=== PATIENT | male | born 1955 | race Caucasian/White ===

== ENCOUNTER → 2018-05-07 02:58 | Outpatient (CLI) | payer OTHER, SELFPAY ==
[2018-05-07 09:30] LABS: ALT 36 U/L (12-78); AST 24 U/L (15-37); Alkaline Phosphatase 92 U/L (46-116); BUN 12 mg/dL (7-18); Bilirubin, Total 0.6 mg/dL (0.2-1.0); CREATININE 1.04 mg/dL (0.70-1.30); Chloride 103 mmol/L (98-107); Cholesterol 146 mg/dL (50-200); Glucose 98 mg/dL (70-100); HDL Cholesterol 54 mg/dL (40-60); LDL CHOLESTEROL 81 mg/dL (<100); Sodium 140 mmol/L (136-145); Triglyceride 93 mg/dL (30-150)
== END ==
PROVIDERS: PCP Family Medicine; Visit Provider Family Medicine
DX: I10 Essential (primary) hypertension (principal); Z13.220 Encounter for screening for lipoid disorders
CPT/HCPCS: 36415; 80053; 80061; 83721

== ENCOUNTER 2018-07-11 15:11 | Outpatient (CLI) | payer OTHER, SELFPAY ==
[2018-07-11 16:10] LABS: Calcium 8.3 mg/dL (8.5-10.1)
[2018-07-12 11:15] LABS: Parathyroid Hormone,Intact 79 pg/ml (19-88)
== END 2018-07-11 15:31 ==
PROVIDERS: PCP Family Medicine; Visit Provider Family Medicine
DX: E83.51 Hypocalcemia (principal)
CPT/HCPCS: 36415; 82310; 83970

== ENCOUNTER 2018-08-23 06:53 | Day surgery (SDC) | payer OTHER, SELFPAY ==
[2018-08-23 07:12] VITALS: BP 146/94; PULSE 88; RESP 16; TEMP 35.4; O2SAT 99
[2018-08-23] MEDS: Lactated Ringers 1,000 ML 30 ML IV (07:29)
[2018-08-23 09:49] VITALS: BP 125/79; PULSE 60; RESP 16; TEMP 36.4; O2SAT 95
--- NOTE | 2018-08-23 09:53 | COLE_ITS ---
Date of service: 08/23/18 Time of Service: 08:45 Colonoscopy Report Date of procedure: 08/23/18 Pre-op diagnosis general: Colorectal cancer screening Post-op diagnosis procedure note: other (Moderate sigmoid diverticula) Procedure: Colonoscopy to the cecum Surgeon: Dominguez Link Anesthesia proc note operative: MAC Estimated blood loss (mL): 0 Pathology: none sent Complications: None Disposition: same day Indications: 62 y/o male with history of HTN presents for colonoscopy screening pre-op. His last screening was in 2007, which was unremarkable. He denies a family history of colon cancer. Prep: Miralax/Dulcolax (Prep quality excellent) Findings: In examining the colon from cecum to anus, patient was found to have some mild sigmoid diverticulosis but no other abnormalities were noted. Procedure Description: The patient was seen in the day surgery waiting area. His identification was confirmed, and procedure checked. He was then brought to the procedure room. Monitoring for telemetry, blood pressure, oxygen saturation, and end tidal CO2 monitoring were applied. An appropriate time out was performed to confirm, identification, allergies, medication, procedure, was performed. Sedation was titrated for affect by the DIESEL POWER MECHANIC; Once adequate sedation was achieved, I performed a inspection of the external perineum, and a digitial rectal examination. No significant external abnormalities were noted. On digital rectal examination, there was no blood, no masses, good rectal tone, and a normal prostate. I advanced the colonoscope from the anus to the cecum under direct visualization. The cecum was identified by the ileal-cecal valve, and the appendiceal orifice. The scope was then withdrawn in circumferential manner from the cecum to the rectum. The colon was noted to have some mild to moderate sigmoid diverticulosis; no other abnormalities are noted of the colon. The scope was then withdrawn into the rectum, and retroflexed. No abnormalities were noted of the rectum or anorectal junction. The scope was then withdrawn, terminating the procedure. There were no complications during the procedure, and the patient tolerated the procedure well. He was returned to the day surgery recovery area in good condition. Plan: Will continue with routine screening for colorectal cancer according to current consensus guidelines, which is currently 10 years.
--- NOTE | 2018-08-23 10:08 | PDOC.DSDIS_ITS ---
Discharge Plan Disposition Patient Disposition: HOME Condition: Good Discharge Details Reason For Visit: SCREENING Attending Provider: Dominguez Link Primary Care Provider: Hilda Galvan Home Meds and New Rx's Prescriptions: Continue mv,Ca,ptb-tiof-[place]-lycopene [Centrum Men] 8 mg iron- 200 mcg-600 mcg tablet 1 tab PO DAILY RF: 0 Discharge Instructions Instructions: Colonoscopy (DC) Stand Alone Forms: Colonoscopy Post Instructions, Lexi Ganey (DSU) Activity:: Activity as Tolerated Diet:: As Tolerated Discharge Orders Discharge Orders: Discharge Order (Routine); Ordered 08/23/18 Ordered By: Dominguez Link DS: Diagnosis Discharge Diagnosis (1) Encounter for colorectal cancer screening: Status: Acute Asessment and Plan: Colonoscopy performed Colonoscopy Report Date of procedure: 08/23/18 Pre-op diagnosis general: Colorectal cancer screening Post-op diagnosis procedure note: other (Moderate sigmoid diverticula) Procedure: Colonoscopy to the cecum Surgeon: Dominguez Link Anesthesia proc note operative: MAC Estimated blood loss (mL): 0 Pathology: none sent Complications: None Disposition: same day Indications: 62 y/o male with history of HTN presents for colonoscopy screening pre-op. His last screening was in 2007, which was unremarkable. He denies a family history of colon cancer. Prep: Miralax/Dulcolax (Prep quality excellent) Findings: In examining the colon from cecum to anus, patient was found to have some mild sigmoid diverticulosis but no other abnormalities were noted. Procedure Description: The patient was seen in the day surgery waiting area. His identification was confirmed, and procedure checked. He was then brought to the procedure room. Monitoring for telemetry, blood pressure, oxygen saturation, and end tidal CO2 monitoring were applied. An appropriate time out was performed to confirm, identification, allergies, medication, procedure, was performed. Sedation was titrated for affect by the LEASING SALES CONSULTANT; Once adequate sedation was achieved, I performed a inspection of the external perineum, and a digitial rectal examination. No significant external abnormalities were noted. On digital rectal examination, there was no blood, no masses, good rectal tone, and a normal prostate. I advanced the colonoscope from the anus to the cecum under direct visualization. The cecum was identified by the ileal-cecal valve, and the appendiceal orifice. The scope was then withdrawn in circumferential manner from the cecum to the rectum. The colon was noted to have some mild to moderate sigmoid diverticulosis; no other abnormalities are noted of the colon. The scope was then withdrawn into the rectum, and retroflexed. No abnormalities were noted of the rectum or anorectal junction. The scope was then withdrawn, terminating the procedure. There were no complications during the procedure, and the patient tolerated the procedure well. He was returned to the day surgery recovery area in good condition. Plan: Will continue with routine screening for colorectal cancer according to current consensus guidelines, which is currently 10 years.
== END 2018-08-23 10:21 | disposition home or self-care (01) ==
PROVIDERS: PCP Family Medicine; Visit Provider Surgery
PROC: 0DJD8ZZ Inspection of Lower Intestinal Tract, Via Natural or Artificial Opening Endoscopic (ICD-10-PCS; CPT 45378; principal; 2018-08-23 08:15)
DX: Z12.11 Encounter for screening for malignant neoplasm of colon (principal); K57.30 Diverticulosis of large intestine without perforation or abscess without bleeding; I10 Essential (primary) hypertension
CPT/HCPCS: 45378

== ENCOUNTER 2019-05-05 09:52 | Outpatient (CLI) | payer OTHER, SELFPAY ==
[2019-05-05 12:44] LABS: ALT 49 U/L (12-78); AST 31 U/L (15-37); Albumin 3.8 g/dL (3.4-5.0); Alkaline Phosphatase 85 U/L (46-116); Anion Gap 11.2 mmol/L (3-11); BUN 10 mg/dL (7-18); Bilirubin, Total 0.5 mg/dL (0.2-1.0); CO2 24.8 mmol/L (21.0-32.0); Calcium 8.5 mg/dL (8.5-10.1); Calculated LDL 81 mg/dL; Chloride 105 mmol/L (98-107); Cholesterol 152 mg/dL (50-200); Glucose 99 mg/dL (70-100); HDL Cholesterol 52 mg/dL (40-60); Potassium 4.1 mmol/L (3.5-5.1); Sodium 141 mmol/L (136-145); Total Protein 6.8 g/dL (6.4-8.2); Triglyceride 98 mg/dL (30-150)
== END 2019-05-05 10:12 ==
PROVIDERS: PCP Family Medicine; Visit Provider Family Medicine
DX: Z00.00 Encounter for general adult medical examination without abnormal findings (principal)
CPT/HCPCS: 36415; 80053; 80061; 83721

== ENCOUNTER 2020-02-17 11:56 | Emergency (ER) | payer OTHER, SELFPAY ==
[2020-02-17 12:00] VITALS: BP 137/91; PULSE 92; RESP 16; TEMP 36.5; O2SAT 100
--- NOTE | 2020-02-17 12:09 | W.ED.GENAD ---
Discharge Plan Disposition Patient Disposition: HOME Condition: Stable Discharge Details Chief Complaint: Laceration Clinical Impression: Laceration of wrist, Forearm laceration Primary Care Provider: Hilda Galvan ED Provider: Nikki Whitlock Home Meds and New Rx's Prescriptions: Continued Centrum Men 8 mg iron- 200 mcg-600 mcg tablet 1 tab PO DAILY RF: 0 lisinopril 20 mg tablet 20 mg PO DAILY Qty: 90 RF: 4 Discharge Instructions Instructions: Laceration (ED) Additional Instructions: Keep wound clean and dry. Cover wound with bandage if risk of contamination. Otherwise you can keep the wound open to air if resting at home to allow edges to dry and heal. Return to the emergency department in 1 week for suture removal. Return to the emergency department or follow-up with your primary care doctor at any time if you develop any worsening pain, redness or swelling around laceration site. Discharge Data Discharge Date/Time-TO BE ENTERED AT DEPARTURE: 02/17/20 12:52 Discharge Physician: Nikki Whitlock Medical Decision Making 64-year-old male presents with left wrist and forearm laceration after a piece of metal equipment hit his left arm at work just prior to arrival. Last tetanus 2012 but he feels that the piece of machinery may have had oil on it. He has no history of diabetes, cancer or immunocompromise. 1.5 cm straight laceration noted on left volar wrist. He has a superficial laceration to mid forearm with area of ecchymosis. He has no bony pain or deformity. He is neurovascularly intact. No obvious foreign bodies. Discussed with patient that an x-ray could be considered to rule out fracture versus foreign body but he declines this stating he does not feel this is necessary. As he was concerned about possible oil on the piece of machinery, will give a Boostrix. 2 nylon 5-0 sutures placed. Wound covered with antibiotic ointment and nonadherent dressing. Advised to return to the ED in 7 days for suture removal. Usual and customary return precautions given prior to discharge. HPI General Mode of arrival: ambulatory. Date/Time Provider Initiated Documentation: 02/17/20 11:57. Limitations to Documentation: no limitations. Information obtained by: patient. HPI Narrative: Patient is a 64-year-old male who presents for left wrist laceration sustained on metal machinery at work just prior to arrival. Patient states a long piece of metal from a machine pulled back and then forward and hit his left wrist and forearm. He sustained a laceration to his left wrist and mid forearm. He denies any bony pain or pain with range of motion. Last tetanus 2012. He states the piece of machinery may have been dirty with some oil. Related Data Home Medications Medication Instructions Recorded Confirmed multivit,Ca,min-iron 8 mg-folic 1 tab PO DAILY tab 07/29/18 02/17/20 acid 200 mcg-lycopene 600 mcg tablet lisinopril 20 mg tablet 20 mg PO DAILY #90 tab 12/12/19 02/17/20 Previous Rx's Medication Instructions Recorded lisinopril 20 mg tablet 20 mg PO DAILY #90 tab 12/12/19 Allergies Allergy/AdvReac Type Severity Reaction Status Date / Time No Known Allergies Allergy Verified 02/17/20 12:05 General Stated Complaint: Laceration JUAN PABLO: 4 Review of Systems All systems reviewed & are unremarkable except as noted in HPI and below Constitutional Constitutional: Reports as per HPI, Denies chills and Denies fever(s) Eyes Eyes: Denies blurry vision ENT Ears, Nose, Mouth, and Throat: Denies dizziness, Denies sore throat and Denies throat swelling Cardiovascular Cardiovascular: Denies chest pain and Denies dyspnea Respiratory Respiratory: Denies cough and Denies dyspnea Gastrointestinal Gastrointestinal: Denies abdominal pain, Denies diarrhea and Denies vomiting Genitourinary Genitourinary: Denies hematuria and Denies dysuria Musculoskeletal Musculoskeletal: Denies back pain and Denies numbness Integumentary/Breasts Skin/Breast: Denies lesions and Denies rash Neurologic Neurologic: Denies dizziness, Denies localized weakness and Denies numbness Allergic/Immunologic Allergic/Immunologic: Denies throat swelling [facility] Medical History (Updated 02/17/20 @ 12:42 by Nikki Whitlock DO) Seizure disorder (Chronic) Surgical History (Updated 04/30/19 @ 07:21 by Nakul Calvillo) Cholecystectomy Colonoscopy - [facility] [place] H/O colonoscopy (Resolved 08/23/18) 08/23/18 - dr lozano, no abnormalities, repeat ten years. Repair of inguinal hernia (~01/1998) Family History (Updated 05/06/19 @ 10:07 by Tomasz Stewart) Father Prostate cancer Mother Heart disease Social History (Updated 05/06/19 @ 10:04 by Tomasz Stewart) Smoking/Tobacco Use Status: Never Second Hand Exposure: Yes Alcohol Intake: current Alcohol Intake frequency: 0-2 drinks per day Alcohol type: beer Drug use: Never Substance use type: does not use Caregiver/Support person: Yes Household members: significant other Housing: house Communication Needs: None Do you need help understanding health information?: Never Pets and animals: No Sexually active: Yes Do you think of yourself as: straight/heterosexual Current gender identity: male What is your relationship status?: living with partner How often do you talk on the phone with friends or family?: once per week How often do you get together with friends or relatives?: twice per week How often do you attend roman catholic or methodist services?: 1-3 times per year Do you belong to any clubs or organized social groups?: yes Panel score (0-1 are the most socially isolated patients): 3 What type of physical activity do you participate in: walking and bicycling Duration: 60-90 minutes/day Frequency: daily Aure/Cheondoism: Sabianism Special aure needs: No Seatbelt use: always Helmet use: Yes Helmet use: always Drive intox or ride w/intox power screwdriver operator: No Do you feel safe at home: Yes Do you feel safe in your relationship?: Yes Exam Const General: cooperative, healthy appearing and no acute distress HENOK Head: normal to inspection Mouth: oral mucosae normal Eyes General: appearance normal, both eyes and all related structures Neck Neck: normal visual inspection Resp Effort & Inspection: normal respiratory effort and able to speak in complete sentences Cardio Rate: regular rate Skin General skin exam: no rashes or lesions noted Neuro General: patient alert, patient awake and patient oriented x3 Other: Normal gross motor/sensory left radial/median/ulnar nerve function. Extrem General: capillary refill normal Elbow/forearm/wrist images: 1. 1.5cm straight laceration located on volar aspect of lateral wrist. Bleeding controlled. No obvious foreign bodies noted. No bony deformity. 2. 4 cm superficial laceration with a 3 mm slightly deeper area through epidermis on lateral aspect. There is a 3 x 3 cm area of ecchymosis just distal to the superficial laceration. No bony deformity, crepitus. Other: Full range of motion of left upper extremity without pain at left shoulder, elbow, wrist or hand. Normal range of motion of left upper extremity without pain. Left radial and ulnar pulses intact. No left snuffbox tenderness. Hand normal to inspection. Psych Appearance: grossly normal Affect: normal affect Course Vital Signs Vital signs: Vital Signs Temperature 97.7 F 02/17/20 12:00 Pulse 92 H 02/17/20 12:00 Respiratory Rate 16 02/17/20 12:00 Blood Pressure 137/91 H 02/17/20 12:00 Pulse Oximetry 100 02/17/20 12:00 Temperature 97.7 F 02/17/20 12:00 Temperature Source Temporal Artery Scan 02/17/20 12:00 Pulse 92 H 02/17/20 12:00 Respiratory Rate 16 02/17/20 12:00 Respiratory Effort Non-Labored 02/17/20 12:03 Blood Pressure 137/91 H 02/17/20 12:00 Blood Pressure Position Sitting 02/17/20 12:00 Pulse Oximetry 100 02/17/20 12:00 Oxygen Delivery Method Room Air 02/17/20 12:00 Oxygen Flow Rate 0 02/17/20 12:00 Pain Level 0 02/17/20 12:00 Procedures Laceration Laceration 1: Site: upper extremity (wrist ) Side (If applicable): left Size (cm): 1.5 Description: linear Depth: simple, single layer Local Anesthetic: Lidocaine 1% Amount of anesthesia used (mL): 8 Pre-repair: wound explored, irrigated extensively and deep structures intact Skin layer closed with: nylon Size (cm): 5-0 Number of sutures: 2 Technique: simple, interrupted
--- NOTE | 2020-02-17 12:51 | NUR.NOTE ---
Nursing Note: LUE wrapped with non stick gauze and cling. Bacitracin applied prior to dressing wound.
== END 2020-02-17 12:52 | disposition home or self-care (01) ==
LOC: ER 13:18
PROVIDERS: Emergency Provider Physician Assistant; PCP Family Medicine
DX: S51.812A Laceration without foreign body of left forearm, initial encounter (principal); S61.512A Laceration without foreign body of left wrist, initial encounter; W26.8XXA Contact with other sharp object(s), not elsewhere classified, initial encounter; Y99.0 Civilian activity done for income or pay
CPT/HCPCS: 12002; 90471

== ENCOUNTER 2020-02-27 09:07 | Emergency (ER) | payer SELFPAY ==
[2020-02-27 09:10] VITALS: BP 143/82; PULSE 75; RESP 16; TEMP 36.7; O2SAT 98
--- NOTE | 2020-02-27 09:13 | W.ED.GENAD ---
Discharge Plan Disposition Patient Disposition: HOME Condition: Stable Discharge Details Chief Complaint: SutureRem Clinical Impression: Encounter for removal of sutures Primary Care Provider: Hilda Galvan ED Provider: Lin Gilbert Home Meds and New Rx's Prescriptions: No Action Centrum Men 8 mg iron- 200 mcg-600 mcg tablet 1 tab PO DAILY RF: 0 lisinopril 20 mg tablet 20 mg PO DAILY Qty: 90 RF: 4 Discharge Instructions Instructions: Skin Adhesive Care (ED), Stitches Removal (ED) Additional Instructions: The tissue adhesive will slough off in 4 to 6 days. Keep it covered and dry. Return for any worsening or concerns. Your wound looks very good today. Follow up with primary care provider in 3-5 days. Return to ED sooner if any worsening or concerns. Increase oral fluids. Please take Tylenol or Ibuprofen with food every 4-6 hours as needed for pain and swelling. Referrals: Hilda Galvan MD [Primary Care Provider] - Medical Decision Making Patient had 2 5.0 simple interrupted sutures placed on February 17, 2020 onto his medial aspect of his left wrist after a sheet-metal accident. Here for suture removal, denies any problems at home, no surrounding erythema, no drainage no signs of infection upon arrival. Will place Dermabond to Steri-Strips and instructed patient on home use., Verbalized understanding. Patient has full range of motion to his wrist no other complaints. Patient discharged with strict return instructions and instructions for home care, verbalized understanding. This text was generated using [employer] system, please disregard any oddities of phrase or misspellings. HPI General Mode of arrival: ambulatory. Date/Time Provider Initiated Documentation: 02/27/20 09:09. Limitations to Documentation: no limitations. Information obtained by: patient. HPI Narrative: Patient had 2 5.0 simple interrupted sutures placed on February 17, 2020 onto his medial aspect of his left wrist after a sheet-metal accident. Here for suture removal, denies any problems at home, no surrounding erythema, no drainage no signs of infection upon arrival. Will place Dermabond to Steri-Strips and instructed patient on home use., Verbalized understanding. Patient has full range of motion to his wrist no other complaints. Related Data Home Medications Medication Instructions Recorded Confirmed multivit,Ca,min-iron 8 mg-folic 1 tab PO DAILY tab 07/29/18 02/17/20 acid 200 mcg-lycopene 600 mcg tablet lisinopril 20 mg tablet 20 mg PO DAILY #90 tab 12/12/19 02/17/20 Previous Rx's Medication Instructions Recorded lisinopril 20 mg tablet 20 mg PO DAILY #90 tab 12/12/19 Allergies Allergy/AdvReac Type Severity Reaction Status Date / Time No Known Allergies Allergy Verified 02/27/20 09:15 General Stated Complaint: SutureRem JUAN PABLO: 4 Review of Systems Narrative: Constitutional: Negative for weight loss, alert and oriented, well groomed, normal body habitus, appears comfortable. Respiratory: Denies Shortness of breath, cough, hemoptysis. : Denies dysuria, hematuria, flank pain, rectal bleeding. Skin: 1 cm laceration noted to the medial aspect of his left wrist here for suture removal. [facility] Medical History Seizure disorder (Chronic) Surgical History Cholecystectomy Colonoscopy - [facility] [place] 2007 H/O colonoscopy (Resolved 08/23/18) 08/23/18 - dr lozano, no abnormalities, repeat ten years. Repair of inguinal hernia (~01/1998) Family History Father Prostate cancer Mother Heart disease Social History Smoking/Tobacco Use Status: Never Second Hand Exposure: Yes Alcohol Intake: current Alcohol Intake frequency: 0-2 drinks per day Alcohol type: beer Drug use: Never Substance use type: does not use Caregiver/Support person: Yes Household members: significant other Housing: house Communication Needs: None Do you need help understanding health information?: Never Pets and animals: No Sexually active: Yes Do you think of yourself as: straight/heterosexual Current gender identity: male What is your relationship status?: living with partner How often do you talk on the phone with friends or family?: once per week How often do you get together with friends or relatives?: twice per week How often do you attend restorationism or episcopalian services?: 1-3 times per year Do you belong to any clubs or organized social groups?: yes Panel score (0-1 are the most socially isolated patients): 3 What type of physical activity do you participate in: walking and bicycling Duration: 60-90 minutes/day Frequency: daily Aure/Voodoo: Lutheran Special aure needs: No Seatbelt use: always Helmet use: Yes Helmet use: always Drive intox or ride w/intox telephone directory distributor driver: No Do you feel safe at home: Yes Do you feel safe in your relationship?: Yes Exam Narrative Exam Narrative: Constitutional: Alert and oriented x3. Appears stated age. Normal body habitus. Resp: Lungs clear to auscultation bilaterally, no wheezes, rales, or rhonchi. Musculoskeletal: Normal gait, 5/5 strength to all four extremities. Skin: No suspicious rashes or lesions. Capillary refill less than 2 sec. does have a sutured laceration noted to left medial wrist, wound edges are slightly un-approximated will apply Dermabond and 2 Steri-Strips. Course Vital Signs Vital signs: Vital Signs Temperature 36.7 C 02/27/20 09:10 Pulse 75 02/27/20 09:10 Respiratory Rate 16 02/27/20 09:10 Blood Pressure 143/82 H 02/27/20 09:10 Pulse Oximetry 98 02/27/20 09:10 Temperature 36.7 C 02/27/20 09:10 Pulse 75 02/27/20 09:10 Respiratory Rate 16 02/27/20 09:10 Blood Pressure 143/82 H 02/27/20 09:10 Blood Pressure Position Sitting 02/27/20 09:10 Pulse Oximetry 98 02/27/20 09:10 Oxygen Delivery Method Room Air 02/27/20 09:10 Oxygen Flow Rate 0 02/27/20 09:10 Pain Level 0 02/27/20 09:10
== END 2020-02-27 09:20 | disposition home or self-care (01) ==
PROVIDERS: Emergency Provider Registered Nurse Emergency; PCP Family Medicine
DX: S61.512D Laceration without foreign body of left wrist, subsequent encounter (principal); W26.8XXD Contact with other sharp object(s), not elsewhere classified, subsequent encounter; Z48.02 Encounter for removal of sutures

== ENCOUNTER 2021-08-10 03:34 | Outpatient (CLI) | payer OTHER, SELFPAY ==
[2021-08-10 09:07] LABS: ALT 60 U/L (16-63); AST 28 U/L (15-37); Albumin 3.9 g/dL (3.4-5.0); Alkaline Phosphatase 106 U/L (46-116); Anion Gap 7.2 mmol/L (3-11); BUN 16 mg/dL (7-18); Bilirubin, Total 0.3 mg/dL (0.2-1.0); CO2 29.8 mmol/L (21.0-32.0); Calculated LDL 101 mg/dL (<100); Chloride 104 mmol/L (98-107); Cholesterol 172 mg/dL (<200); Glucose 103 mg/dL (74-106); HDL Cholesterol 53 mg/dL (40-60); Potassium 4.4 mmol/L (3.5-5.1); Sodium 141 mmol/L (136-145); Total Protein 6.9 g/dL (6.4-8.2); Triglyceride 90 mg/dL (<150)
== END 2021-08-10 03:35 | disposition home or self-care (01) ==
LOC: LBO 03:34
PROVIDERS: PCP Family Medicine; Visit Provider Family Medicine
DX: I10 Essential (primary) hypertension (principal); Z12.5 Encounter for screening for malignant neoplasm of prostate; Z00.00 Encounter for general adult medical examination without abnormal findings
CPT/HCPCS: 36415; 80053; 80061; 84153

== ENCOUNTER 2023-10-24 04:21 | Outpatient (CLI) | payer MEDICARE, SELFPAY ==
[2023-10-24 12:38] LABS: HCT 44.4 % (40.0-50.0); HGB 15.3 g/dL (13.5-17.5); MCHC 34.5 % (32.0-36.0); MCV 90 fL (80-95); MPV 10.8 fL (8.0-11.0); Platelet Count 192 10^3/uL (130-400); RBC 4.93 10^6/uL (4.36-5.78); RDW 11.9 % (11.8-14.1); RDW-SD 39.5 fL; WBC 7.29 10^3/uL (4.4-10.8)
[2023-10-24 12:47] LABS: Anion Gap 7.9 mmol/L (3-11); BUN 14 mg/dL (7-18); CO2 28.1 mmol/L (21.0-32.0); Calcium 9.4 mg/dL (8.5-10.1); Chloride 102 mmol/L (98-107); Estimated GFR 83.01 (mL/min/1.73m2); Glucose 126 mg/dL (74-106); Potassium 4.2 mmol/L (3.5-5.1); Sodium 138 mmol/L (136-145)
[2023-10-24 17:58] LABS: PSA, Screening 2.1 ng/mL (<=4.5)
== END 2023-10-24 04:22 | disposition home or self-care (01) ==
LOC: LOS 04:21
PROVIDERS: PCP Nurse Practitioner Family; Visit Provider Nurse Practitioner Family
DX: I10 Essential (primary) hypertension (principal); Z12.5 Encounter for screening for malignant neoplasm of prostate
CPT/HCPCS: 36415; 80048; 84153; 85027

== ENCOUNTER 2024-10-07 03:58 | Outpatient (CLI) | payer MEDICARE, SELFPAY ==
[2024-10-07 13:10] LABS: Anion Gap 6.4 mmol/L (3-11); BUN 15 mg/dL (7-18); CO2 29.6 mmol/L (21.0-32.0); CREATININE 1.2 mg/dL (0.70-1.30); Calcium 9.1 mg/dL (8.5-10.1); Calculated LDL 97 mg/dL (<100); Chloride 106 mmol/L (98-107); Cholesterol 173 mg/dL (<200); Glucose 115 mg/dL (74-106); HDL Cholesterol 57 mg/dL (40-60); Hemoglobin A1C 5.7 % (<5.7); Potassium 4.1 mmol/L (3.5-5.1); Sodium 142 mmol/L (136-145); Triglyceride 97 mg/dL (<150)
[2024-10-07 18:36] LABS: PSA, Screening 2.4 ng/mL (<=4.5)
== END 2024-10-07 03:59 | disposition home or self-care (01) ==
LOC: LOS 04:00
PROVIDERS: PCP Nurse Practitioner Family; Visit Provider Nurse Practitioner Family
DX: I10 Essential (primary) hypertension (principal); Z00.00 Encounter for general adult medical examination without abnormal findings; R73.09 Other abnormal glucose; Z12.5 Encounter for screening for malignant neoplasm of prostate
CPT/HCPCS: 36415; 80048; 80061; 84153; 83036

== ENCOUNTER 2025-09-21 00:45 | Outpatient (CLI) | payer MEDICARE, SELFPAY ==
[2025-09-21 10:29] LABS: Hemoglobin A1C 5.8 % (<5.7)
[2025-09-21 10:32] LABS: ALT 51 U/L (10-49); AST 36 U/L (<34); Albumin 4.5 g/dL (3.2-5.0); Alkaline Phosphatase 86 U/L (46-116); Anion Gap 10.3 mmol/L (3-11); BUN 17 mg/dL (9-23); Bilirubin, Total 0.6 mg/dL (0.2-1.2); CO2 25.7 mmol/L (20.0-31.0); Calcium 9.7 mg/dL (8.3-10.6); Chloride 104 mmol/L (98-107); Cholesterol 207 mg/dL (<200); Glucose 112 mg/dL (74-106); HDL Cholesterol 64 mg/dL (>or=40); Potassium 4.0 mmol/L (3.5-5.1); Sodium 140 mmol/L (136-145); Total Protein 7.4 g/dL (5.7-8.2)
[2025-09-21 17:43] LABS: PSA, Screening 2.8 ng/mL (<=4.5)
== END 2025-09-21 00:46 | disposition home or self-care (01) ==
LOC: LBO 00:45
PROVIDERS: PCP Nurse Practitioner Family; Visit Provider Nurse Practitioner Family
DX: Z12.5 Encounter for screening for malignant neoplasm of prostate (principal); Z00.00 Encounter for general adult medical examination without abnormal findings; I10 Essential (primary) hypertension; R73.01 Impaired fasting glucose
CPT/HCPCS: 36415; 80053; 80061; 84153; 83036

== ENCOUNTER → 2025-09-23 10:35 | Outpatient (CLI) | payer MEDICARE, SELFPAY ==
--- NOTE | 2025-09-23 10:40 | DI.US_ITS ---
APPROVED REPORT EXAM: Comprehensive 2D, Doppler, and color-flow Echocardiogram Patient Location: Out-Patient [facility] Facility Examiner: Sandra Diaz RDCS (AE) Indications: Cardiac Murmur Other Information Study Quality: Adequate Conclusion Normal left ventricular wall thickness and chamber size. Ejection fraction is 60 to 65%. Wall motion is normal Normal right ventricular size and function Both atria are normal in size Aortic valve is sclerotic and trileaflet with trace regurgitation Minimally dilated ascending aorta measuring 3.6 cm Wall motion Left Ventricle The left ventricle is normal size. The left ventricular systolic function is normal. The left ventricular ejection fraction is within the normal range. There is normal left ventricular wall thickness. There is normal LV segmental wall motion. There is no ventricular septal defect visualized. LVEF is 60-65%. Right Ventricle The right ventricle is normal size. The right ventricular systolic function is normal. Atria The left atrium size is normal. The right atrium size is normal. The interatrial septum is intact with no evidence for an atrial septal defect. Aortic Valve The Aortic valve is sclerotic. Aortic valve is trileaflet. There is no aortic valvular stenosis. Trace aortic regurgitation is present. Mitral Valve The mitral valve is normal in structure. No evidence of mitral valve stenosis. Trace mitral regurgitation. Tricuspid Valve The tricuspid valve is normal in structure. There is no tricuspid valve stenosis. Trace tricuspid regurgitation. Unable to assess PA pressure. Pulmonic Valve The pulmonary valve is normal in structure. There is no pulmonic valvular stenosis. Trace pulmonic regurgitation. Great Vessels The aortic root is normal in size. The ascending aorta is mildly dilated. Aortic arch is not well visualized. IVC is normal in size and collapses >50% with inspiration. Pericardium There is no pericardial effusion. 2D Dimensions IVSD d PLAX 0.92 cm M: 0.6-1.2 Ao Root d 3.20 cm M: 3.1 - 3.7 LVPW d PLAX 0.90 cm M: 0.6 - 1.2 Ao Asc Diam d 3.60 cm M: 2.6 - 3.4 LVID d PLAX 5.21 cm M: 4.2 - 5.8 LVDs 3.52 cm M: 2.5 - 4.0 LV EF Teichholz 60.5 % FS 32.52 % LV EDV (Teich) 130.3 mL LV ESV (Teich) 51.5 mL M-Mode TAPSE 2.25 cm (M/F) >1.7 Auto EF LV EDV A4C 117.3 mL LV EDV A2C 117.2 mL LV EDV BP 117.1 mL LV ESV A4C 42.1 mL LV ESV A2C 47.0 mL LV ESV BP 44.4 mL LVEF(%) A4C 64.1 % LVEF(%) A2C 59.9 % LVEF(%) BP 62.1 % LV SV A4C 75.2 ml LV SV A2C 70.3 ml LV SV BP 72.7 ml LV CO A4C 5.1 L/min LV CO A2C 4.8 L/min LV CO BP 4.9 L/min HR A4C 67.67 BPM HR A2C 68.18 BPM LV EDV Index (BP) LA Volume LA Length A4C 4.5 cm LA Length A2C 5.1 cm LA Area A4C s 13.86 cm2 LA Area A2C s 16.62 cm2 LA Vol A4C A-L 36.20 mL LA Vol A2C A-L 46.01 mL LA Vol Biplane A-L 43.4 mL LA Vol/BSA A4C A-L LA Vol/BSA A2C A-L LA Vol/BSA BP A-L 21.3 mL/m2 LA Vol A4C MOD 33.6 mL LA Vol A2C MOD 42.5 mL LA Vol BP MOD 39.8 mL LV Diastology MV E' medial 0.058 (>0.07 m/s) MV E Vmax 0.68 (0.4-1.3 m/s) MV E/E' MED 11.85 (<14) MV A Vmax 0.95 (0.4-1.3 m/s) MV E' lateral 0.082 (>0.1 m/s) E/A Ratio 0.7 MV E/E' LAT 8.35 (<14) MV E' Average 0.070 m/s MV E/E'(average) 9.80 Aortic Valve AoV Vmax 1.72 m/s LVOT Vmax 1.55 m/s AoV Peak Grad 11.8 mmHg LVOT Peak Grad 9.6 mmHg AoV Area (Vmax) 3.18 cm2 LVOT VTI 0.251 m AoV VTI 0.306 m LVOT Mean Grad 5.4 mmHg AoV Mean Trevor. 1.15 m/s LVOT SV 88.60 mL AoV Mean Grad 6.2 mmHg LVOT Diam s 2.10 cm AoV Area (VTI) 2.90 cm2 AV Regurg Peak Gr. 11.81 mmHg Velocity Ratio 0.90 Mitral Valve MV DT 283 (160-240 msec) MV Vmax TIPS 0.89 m/s MV Mean Grad 1.0 (<2mmHg) MV VTI 0.313 m Pulmonary Valve PV Vmax 1.14 (0.5-1.5 m/s) PV Peak Grad 5.2 mmHg PV Mean Trevor 0.93 m/s PV Mean Grad 3.7 mmHg Tricuspid Valve TV S' 0.14 m/s
== END ==
LOC: DI 10:35
PROVIDERS: PCP Nurse Practitioner Family; Visit Provider Nurse Practitioner Family
DX: R01.1 Cardiac murmur, unspecified (principal); I35.0 Nonrheumatic aortic (valve) stenosis
CPT/HCPCS: 93306